=== PATIENT | female | born 1980 | race African-American/Black ===

== ENCOUNTER → 2016-12-13 | Outpatient (CLI) | payer OTHER ==
--- NOTE | 2016-11-08 19:47 | SLEEPCENT ---
DATE OF PROCEDURE: 11/04/2015 REFERRING PHYSICIAN: Zulema Rosales Nocturnal polysomnography was performed for evaluation of sleep apnea syndrome symptoms in this patient with a history of life long sleep problems resulting in excessive somnolence and nonrestorative sleep. The patient also has comorbidity of hypertension and is contemplating gastric bypass procedures. 6 hours and 08 minutes of data were reviewed. There were on 44 minutes of sleep identified. Sleep latency was prolonged at 30 minutes. The patient did not achieve rapid eye movement (REM) sleep. 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 Overall sleep efficiency was only 12.3%. The patient's EKG showed a sinus rhythm with an average heart rate of 78 beats per minute. EEG showed fairly normal waveforms for awake and sleep. During the limited time the patient did display sleep, 13 respiratory events were identified of 10 seconds in duration or greater for an apnea/hypopnea index of 17.7. The events seen were associated with arousals 6.6 times per hour from limb movements were noted and oxygen desaturations seen into the upper 80s. IMPRESSION: Equivocal nocturnal polysomnography strongly suspicious for the obstructive sleep apnea syndrome. RECOMMENDATION: Given the very limited amount of sleep during this study, retesting is recommended particularly given the findings that suggest obstructive sleep apnea syndrome.
--- NOTE | 2016-12-18 12:29 | SLEEPHOME ---
DATE OF PROCEDURE: 12/13/2016 ORDERED BY: Zulema Rosales. INTERPRETATION: Diagnostic home sleep testing was performed due to concern for the obstructive sleep apnea syndrome. For testing, a NOX-T3 respiratory monitoring device was used. Continuous record was made of pulse, oxygen saturation, air flow, chest and abdominal strain and body position. 9 hours and 59 minutes of data were reviewed. Of these, 9 hours and 4 minutes were marked as time in bed. During the interval marked time in bed, there were 161 respiratory events identified of 10 seconds in duration or greater for an Apnea-hypopnea index of 17.7. The events were primarily obstructive not exclusive to body posture. The patient's baseline heart rate was 71 beats per minute. Pulse rate ranged 53-99. Baseline oxygen saturation 89%. Lowest oxygen saturation recorded 71%. Testing was performed in both the supine and non- supine positions. IMPRESSION: Abnormal home sleep testing with repetitive respiratory events and oxygen desaturations to 71% with a respiratory event index of 17.7 is consistent with the obstructive sleep apnea syndrome. RECOMMENDATION: The patient should be encouraged to return to the sleep disorder center for pressure therapy. In the interim, alcohol and sedative avoidance should be practiced and caution exercised during the operation of motor vehicles. Edited 12/20/16 1158 saleem NELSON
== END ==
LOC: M SLEEP 11-04 19:10 → M SLEEP HO 10:03
PROVIDERS: ATTEND Nurse Practitioner Adult Health
DX: G47.30 Sleep apnea, unspecified (principal)

== ENCOUNTER 2017-09-22 12:00 | Emergency (ER) | payer OTHER ==
[~2017-09-22] VITALS: Ht 149.9 cm; Wt 78.2 kg
[2017-09-22 12:00] VITALS: BP 159/97
[2017-09-22] MEDS ORDERED: SIMV40TA2 PO (12:15)
[2017-09-22] MEDS ORDERED: AMLO5TAB2 PO (12:15)
[2017-09-22] MEDS ORDERED: OMEP40CA2 PO (12:15)
[2017-09-22] MEDS ORDERED: TOPR25TA PO (12:15)
[2017-09-22] MEDS ORDERED: LISI-538 PO (12:15)
[2017-09-22] MEDS ORDERED: VIT B (12:15)
[2017-09-22] MEDS ORDERED: LEVO10VL PO (12:15)
== END 2017-09-22 14:56 | disposition home or self-care (01) ==
LOC: M ED 12:00
DX: S09.90XA Unspecified injury of head, initial encounter (principal); R51 Headache; V48.4XXA Person boarding or alighting a car injured in noncollision transport accident, initial encounter; Y92.481 Parking lot as the place of occurrence of the external cause; Y93.89 Activity, other specified; Y99.0 Civilian activity done for income or pay

== ENCOUNTER → 2018-04-02 | Outpatient (CLI) | payer OTHER | LOC: M RAD 15:58 | DX: Z12.31 Encounter for screening mammogram for malignant neoplasm of breast (principal) | CPT/HCPCS: 77067 ==